=== PATIENT | male | born 1995 | race Two or more races ===

== ENCOUNTER 2022-07-25 13:16 | Emergency (ER) | payer SELFPAY ==
[~2022-07-25] VITALS: Ht 167.6 cm; Wt 75.0 kg
[2022-07-25] MEDS ORDERED: HYDROcodone-ACET 5/325MG TAB PO ONE (14:30)
[2022-07-25] MEDS ORDERED: HYDROcodone-ACET 10/325MG TAB PO ONE (14:45)
[2022-07-25] MEDS ORDERED: KETOROLAC TROMETH 60MG/2ML VIAL IM ONE (14:45)
[2022-07-25 15:59] VITALS: BP 118/73
[2022-07-25] MEDS ORDERED: IBUP800T26 PO (17:29)
[2022-07-25] MEDS ORDERED: HYDR-4798 PO (17:29)
== END 2022-07-25 18:26 | disposition home or self-care (01) ==
LOC: ER 13:16
DX: S82.402A Unspecified fracture of shaft of left fibula, initial encounter for closed fracture (principal); S82.52XA Displaced fracture of medial malleolus of left tibia, initial encounter for closed fracture; V86.56XA Driver of dirt bike or motor/cross bike injured in nontraffic accident, initial encounter; Y93.89 Activity, other specified; Y92.89 Other specified places as the place of occurrence of the external cause; Y99.8 Other external cause status
CPT/HCPCS: 29515; 70450; 72070; 72125; 73590; 73610; 96372; 99285; J1885